=== PATIENT | female | born 1965 | race Caucasian/White ===

== ENCOUNTER 2016-07-13 09:09 | Outpatient (CLI) | payer OTHER ==
[2016-07-13 16:14] LABS: LDL Cholesterol, Calculated 100 mg/dL
== END 2016-07-13 09:10 ==
LOC: LABLEX 09:09
PROVIDERS: ATTEND Family Medicine
DX: Z00.00 Encounter for general adult medical examination without abnormal findings (principal)
CPT/HCPCS: 80061; 82947